=== PATIENT | female | born 1995 | race African-American/Black ===

== ENCOUNTER 2018-09-09 18:24 | Emergency (ER) | payer OTHER ==
[~2018-09-09] VITALS: Ht 154.9 cm; Wt 47.6 kg
[2018-09-09 18:53] LABS: URINE CLARITY SL HAZY; URINE COLOR YELLOW; URINE SPECIFIC GRAVITY >= 1.030 (1.005-1.035)
[2018-09-09 18:54] LABS: ICTOTEST (BILI CONFIRMATORY) Negative (Negative); URINE BILIRUBIN NEGATIVE (Negative); URINE BLOOD NEGATIVE (Negative); URINE GLUCOSE-RANDOM* NEGATIVE (Negative); URINE KETONES 1+ (Negative); URINE LEUKOCYTES-REFLEX NEGATIVE (Negative); URINE NITRITE-REFLEX NEGATIVE (Negative); URINE PROTEIN (DIPSTICK) TRACE (Negative)
[2018-09-09 19:31] LABS: ABSOLUTE NEUTROPHILS 14.4 thou/uL (1.4-8.2); BASOPHILS 0.1 % (0.0-2.0); EOSINOPHILS 0.1 % (0.0-3.0); HEMOGLOBIN 12.8 gm/dL (12.0-15.0); LYMPHOCYTES 3.9 % (24.0-44.0); MCH 28.8 pg (26.0-34.0); MCHC 32.7 g/dL (28.0-37.0); MCV 87.9 fL (80.0-100.0); MONOCYTES 5.1 % (1.0-8.0); PLATELET COUNT 238 thou/uL (150-400); POLYS 90.8 % (36.0-66.0); RBC 4.44 mil/uL (4.20-5.00); RDW 14.3 % (10.5-14.5); WBC 15.9 thou/uL (4.0-11.0)
[2018-09-09 19:44] LABS: CALCIUM 9.5 mg/dL (8.5-10.1); CREATININE 0.8 mg/dL (0.6-1.0); POTASSIUM 3.5 mmol/L (3.5-5.1)
[2018-09-09 19:50] LABS: ALBUMIN 3.1 g/dL (3.4-5.0); TOTAL BILIRUBIN 0.7 mg/dL (<0.1-1.0); TOTAL PROTEIN 7.9 g/dL (6.4-8.2)
[2018-09-09] MEDS ORDERED: BISACODYL SUPP10 MG RECTAL (21:09)
[2018-09-09] MEDS ORDERED: BENTYL 20 MG TA20 M1 PO (21:09)
[2018-09-09] MEDS ORDERED: ZOFRAN ODT4 MG PO (21:09)
[2018-09-09] MEDS ORDERED: MIRALAX17 GM PO (21:09)
[2018-09-09 21:50] VITALS: BP 123/75
== END 2018-09-09 21:50 | disposition home or self-care (01) ==
LOC: ER 18:24
PROVIDERS: Emergency Medicine
DX: K59.00 Constipation, unspecified (principal); R11.10 Vomiting, unspecified; F17.210 Nicotine dependence, cigarettes, uncomplicated; Z98.890 Other specified postprocedural states

== ENCOUNTER 2018-09-14 14:19 | Inpatient (IN) | payer OTHER ==
[~2018-09-14] VITALS: Ht 154.9 cm; Wt 49.9 kg
--- NOTE | ~2018-09-14 | HC ---
[facility] [place] [address] CONSULTATION Name: PERICO HAAS Room #: 422-P ADM IN M.R.#: [id number] Admission: 09/14/18 Attend Phys: Maria T Lane MD Discharge: Date of : 89 Report #: [id number] THIS REPORT FOR: //name// CC: [facility] physician/PCP Maria T Lane DATE OF SERVICE: 09/17/2018 REASON FOR CONSULTATION: Evaluate enteritis and chlamydia cervicitis. HISTORY OF PRESENT ILLNESS: The patient is a 23-year-old with no previous medical history, who presents with approximately 2-week history of abdominal pain located in her mid to lower abdomen. This has been associated with initial constipation. Also associated with nausea and vomiting. She has had temperature up to 102 degrees. There has been no diarrhea. She had one day of which she considers abnormal stool with possible blood associated. No history of rectal bleeding or passing mucus. She lives with friends and her daughter, none of which have been ill. No travel. Does not work outside the home. Admitted on 09/14/2018 and placed on ciprofloxacin and metronidazole. Since then, she has improved with less abdominal pain. The nausea and vomiting have resolved. Fever has resolved. She has had a bowel movement, but overall remains constipated. She does have a history of dysmenorrhea. She delivered her child in 2013 by . Her menses have been irregular. She has been monogamous over the last 4 months. No prior history of STDs. Reports HIV negative previously. She has had fairly persistent vaginal bleeding for the last 3 weeks. She did have a hormonal implant for control, which has as of 02/2017. ALLERGIES: None known. MEDICATIONS: As noted on her MAR including ciprofloxacin, metronidazole and now doxycycline, which was added today. PAST MEDICAL HISTORY: Congenital hearing loss, right ear. FAMILY HISTORY: Inflammatory bowel disease. SOCIAL HISTORY: Smoker of cigarettes, occasional marijuana. No IV drug use. Minimal alcohol use. REVIEW OF SYSTEMS: Denies any headache, cough, sputum, chest pain, palpitations, dysuria, rash, adenopathy, neurologic complaints, psychiatric complaints, hematologic issues. PHYSICAL EXAMINATION: [facility] [address] [place] [address] CONSULTATION Name: PERICO HAAS Room #: 422-P [facility] IN M.R.#: [id number] Admission: 09/14/18 Attend Phys: Maria T Lane MD Discharge: Date of : 89 Report #: [id number] VITAL SIGNS: Afebrile and hemodynamically stable. Maximum temperature last 48 hours is 100.5 degrees. SKIN: Unremarkable other than multiple tattoos. NECK: No adenopathy palpable. HEENT: Eyes: No icterus or conjunctivitis. Mouth without lesion. Several piercings. LUNGS: Clear. HEART: Regular, without murmur. ABDOMEN: Soft with mild tenderness in the rym-fv-lnbtb abdomen. No appreciable mass or hepatosplenomegaly. GENITAL AND RECTAL: Not done as previously performed by Gynecology today. EXTREMITIES: Without lesion, swelling, cyanosis or clubbing. NEUROLOGIC: Cranial nerves intact. Strength in the upper and lower extremities normal. Sensation normal. Deep tendon reflexes normal. PSYCHIATRIC: Mood normal. LABORATORY STUDIES: Sodium 139, potassium 3.4, bicarbonate 31, creatinine 0.7. Lipase 53. Liver function test normal. Initial white count was 15,000, now 6.6. Hemoglobin 10.3, platelet count 353,000. Urinalysis: 2+ protein, 1+ ketones. Chlamydia screen positive, GC negative, Trichomonas negative. CT of the abdomen and pelvis, thickening of the small bowel, several loops in the mid abdomen. Ultrasound of the pelvis negative. IMPRESSION: A 23-year-old with chlamydia cervicitis. No evidence of pelvic inflammatory disease in that her CT scan and ultrasound were negative for abscess or uterine thickening and on examination by Gynecology, she had very mild cervical motion tenderness. Abdominal pain is concerning for inflammatory bowel disease. Still could be acute infectious process. No evidence of trauma. Seems relatively young for malignancy. Doubt vasculitis or ischemia. Meckel's diverticulum would be possible. No evidence of appendicitis. RECOMMENDATIONS: We will continue antibiotic coverage with ciprofloxacin and metronidazole for 10 days. I agree with the addition of doxycycline for 7 days. We will switch to enteral route for her antibiotics and see if she can tolerate this prior to discharge. Small bowel follow through seems most appropriate next test followed by colonoscopy. By: [id number] Eusbeio Barrera MD /nt
[~2018-09-14 14:19] MED LIST: BENTYL 20 MG TA20 M1 PO; BISACODYL SUPP10 MG RECTAL; MIRALAX17 GM PO; ZOFRAN ODT4 MG PO
[2018-09-14 14:50] VITALS: BP 122/84
[2018-09-14 15:20] LABS: ABSOLUTE NEUTROPHILS 13.7 thou/uL (1.4-8.2); BASOPHILS 0.2 % (0.0-2.0); EOSINOPHILS 0.5 % (0.0-3.0); HEMATOCRIT 39.2 % (37.0-47.0); HEMOGLOBIN 13.4 gm/dL (12.0-15.0); LYMPHOCYTES 5.5 % (24.0-44.0); MCH 29.1 pg (26.0-34.0); MCV 85.6 fL (80.0-100.0); MONOCYTES 5.6 % (1.0-8.0); PLATELET COUNT 393 thou/uL (150-400); POLYS 88.2 % (36.0-66.0); RBC 4.59 mil/uL (4.20-5.00); RDW 14.3 % (10.5-14.5); WBC 15.5 thou/uL (4.0-11.0)
[2018-09-14 15:31] LABS: ALBUMIN 2.7 g/dL (3.4-5.0); CALCIUM 9.9 mg/dL (8.5-10.1); CREATININE 0.8 mg/dL (0.6-1.0); POTASSIUM 3.1 mmol/L (3.5-5.1); TOTAL BILIRUBIN 0.6 mg/dL (<0.1-1.0); TOTAL PROTEIN 8.6 g/dL (6.4-8.2)
[2018-09-14 16:28] LABS: URINE CLARITY CLEAR; URINE COLOR AMBER; URINE PROTEIN (DIPSTICK) 2+ (Negative); URINE SPECIFIC GRAVITY 1.025 (1.005-1.035)
[2018-09-14 16:29] LABS: ICTOTEST (BILI CONFIRMATORY) Positive (Negative); URINE BILIRUBIN 2+ (Negative); URINE BLOOD NEGATIVE (Negative); URINE GLUCOSE-RANDOM* NEGATIVE (Negative); URINE KETONES 1+ (Negative); URINE LEUKOCYTES-REFLEX NEGATIVE (Negative); URINE NITRITE-REFLEX NEGATIVE (Negative)
[2018-09-14 16:31] LABS: BACTERIA-REFLEX None Seen /HPF (None Seen); MUCUS >6 Heavy strn/LPF (None Seen); SQUAMOUS >10 Many /LPF (0-3); URINE RBC None Seen /HPF (0-2); URINE WBC-REFLEX 0-5 Rare /HPF (0-5)
[2018-09-14 19:27] VITALS: BP 117/79
[2018-09-14 19:40] VITALS: BP 113/64
[2018-09-14 20:43] VITALS: BP 113/72
[2018-09-15 04:15] VITALS: BP 115/70
[2018-09-15 07:30] VITALS: BP 119/74
[2018-09-15 15:30] VITALS: BP 122/78
[2018-09-15 20:26] VITALS: BP 127/77
[2018-09-16 04:14] VITALS: BP 135/86
[2018-09-16 05:45] LABS: MCH 29.1 pg (26.0-34.0); MCHC 33.7 g/dL (28.0-37.0); MCV 86.4 fL (80.0-100.0); RBC 3.59 mil/uL (4.20-5.00); RDW 14.4 % (10.5-14.5); WBC 8.7 thou/uL (4.0-11.0)
[2018-09-16 05:47] LABS: HEMOGLOBIN 10.5 gm/dL (12.0-15.0)
[2018-09-16 05:56] LABS: CALCIUM 8.6 mg/dL (8.5-10.1); CREATININE 0.7 mg/dL (0.6-1.0); POTASSIUM 3.4 mmol/L (3.5-5.1)
[2018-09-16 07:50] VITALS: BP 129/74
--- NOTE | 2018-09-16 16:16 | HC ---
[facility] [place] [address] CONSULTATION Name: PERICO HAAS Room #: 422-P ADM IN M.R.#: [id number] Admission: 09/14/18 Attend Phys: Sameer Jeffrey MD Discharge: Date of : 89 Report #: [id number] THIS REPORT FOR: //name// CC: Sameer Jeffrey [facility] physician/PCP HISTORY OF PRESENT ILLNESS: The patient is a 23-year-old female I have been asked to see for further evaluation of her GI symptoms, which include abdominal pain, abdominal distention and diarrhea over the course of the last 2 weeks, but worse over the last 1 week. She denies hematochezia. She has had nausea and vomiting and presents with dilated small bowel loops. She denies significant fever or muscle aches, myalgias or general fatigue. PAST MEDICAL HISTORY: Her medical history is well detailed in her old notes but includes no significant chronic medical problems. PAST SURGICAL HISTORY: She has had a in the past. FAMILY HISTORY: Negative for inflammatory bowel disease or colon cancer. ALLERGIES: She is allergic to no medications. MEDICATIONS: No medications on presentation. SOCIAL HISTORY: She does smoke marijuana and cigarettes and drinks occasionally. REVIEW OF SYSTEMS: Negative for weight loss, weakness or fatigue. She denies head, eyes, ears, nose or throat complaints. She denies chest pain, chest palpitation, chest pressure, cough, shortness of breath, wheezing, genitourinary, musculoskeletal or neuropsychiatric complaints beyond that mentioned above. PHYSICAL EXAMINATION: GENERAL: The patient is afebrile. VITAL SIGNS: Stable. HEENT: Nonicteric. NECK: No JVD, thyromegaly or bruits. CARDIOVASCULAR: Regular. LUNGS: Clear. ABDOMEN: Soft, mildly distended, tender throughout without evidence of rebound. No stigmata of chronic liver disease. No abnormal masses or bruits. EXTREMITIES: No clubbing, cyanosis or edema. NEUROLOGIC: Deferred. RECTAL: Deferred. PERTINENT LABORATORY DATA: White count 15.5 with a left shift. Her sed rate [facility] [address] [place] [address] CONSULTATION Name: CARROLL HAASLEY Room #: 422-P ADM IN M.R.#: [id number] Admission: 09/14/18 Attend Phys: Sameer Jeffrey MD Discharge: Date of : 89 Report #: [id number] was 121. Chemistry: Potassium 3.1, chloride 95, venous bicarbonate 32. ALT, AST, lipase normal. CT reveals proximal small bowel dilation and possible colonic dilation. There is apparent wall thickening of the bowel and possible narrowed thick walled small bowel in the mid pelvis. Differential included inflammatory bowel disease versus enteritis. She had a pelvic transvaginal ultrasound, which revealed retroverted uterus and otherwise not abnormal. IMPRESSION AND PLAN: In summary, the patient has evidence of enteritis. The differential between infectious enteritis and inflammatory enteritis secondary to Crohn's disease is often difficult to make. She does have a sedimentation rate significantly elevated. Her clinical presentation is more consistent with a more acute process, which would suggest a viral or bacterial enteritis. She has never had GI workup in the past. At this point, I would facilitate treatment with antibiotics as we are doing. In addition, a colonoscopy may be recommended at some point based on her clinical course. IV fluids and relative bowel rest is recommended as well. We will follow concurrently. Thanks again for allowing me to participate in the care of this woman. <ELECTRONICALLY SIGNED> By: Mikey Jurado MD 09/16/18 [id number] Mikey Jurado MD /nt
[2018-09-16 19:22] VITALS: BP 149/84
[2018-09-17 05:02] VITALS: BP 123/90
[2018-09-17 05:59] LABS: HEMATOCRIT 31.5 % (37.0-47.0); HEMOGLOBIN 10.3 gm/dL (12.0-15.0); MCH 28.4 pg (26.0-34.0); MCHC 32.7 g/dL (28.0-37.0); MCV 86.8 fL (80.0-100.0); RBC 3.63 mil/uL (4.20-5.00); RDW 14.4 % (10.5-14.5); WBC 6.6 thou/uL (4.0-11.0)
[2018-09-17 06:05] LABS: CALCIUM 8.3 mg/dL (8.5-10.1); CREATININE 0.7 mg/dL (0.6-1.0); POTASSIUM 3.4 mmol/L (3.5-5.1)
[2018-09-17 08:08] VITALS: BP 111/69
[2018-09-17 15:58] VITALS: BP 122/74
[2018-09-17 20:00] VITALS: BP 123/82
[2018-09-18 04:20] VITALS: BP 118/72
[2018-09-18 07:46] VITALS: BP 118/74
[2018-09-18 10:07] LABS: HIV ANTIBODY Non Reactive (Non Reactive)
[2018-09-18] MEDS ORDERED: DOXYCYCLINE HYC50 MG PO (10:43)
[2018-09-18] MEDS ORDERED: CIPRO500 MG PO (10:43)
[2018-09-18 11:47] VITALS: BP 118/74
== END 2018-09-18 13:00 | disposition home or self-care (01) | DRG 758 ==
LOC: ER 14:19 → 4E 18:58 → EROBS 18:58 → 4E 19:45
PROVIDERS: Nurse Practitioner Acute Care; Obstetrics & Gynecology; Physician Assistant; ADMIT Internal Medicine
DX: A56.09 Other chlamydial infection of lower genitourinary tract (principal); K56.600 Partial intestinal obstruction, unspecified as to cause; K58.0 Irritable bowel syndrome with diarrhea; N71.9 Inflammatory disease of uterus, unspecified; K52.9 Noninfective gastroenteritis and colitis, unspecified; E87.6 Hypokalemia; F12.90 Cannabis use, unspecified, uncomplicated; D64.9 Anemia, unspecified; N94.6 Dysmenorrhea, unspecified; F17.210 Nicotine dependence, cigarettes, uncomplicated; Z98.891 History of uterine scar from previous surgery; Z79.899 Other long term (current) drug therapy
CPT/HCPCS: 10084

== ENCOUNTER 2018-10-07 21:49 | Emergency (ER) | payer OTHER ==
[~2018-10-07] VITALS: Ht 154.9 cm; Wt 49.9 kg
[~2018-10-07 21:49] MED LIST changes: +CIPRO500 MG PO; +DOXYCYCLINE HYC50 MG PO
[2018-10-07 22:16] LABS: ABSOLUTE NEUTROPHILS 7.2 thou/uL (1.4-8.2); BASOPHILS 0.4 % (0.0-2.0); EOSINOPHILS 0.1 % (0.0-3.0); HEMATOCRIT 40.3 % (37.0-47.0); HEMOGLOBIN 13.3 gm/dL (12.0-15.0); LYMPHOCYTES 10.9 % (24.0-44.0); MCH 28.3 pg (26.0-34.0); MCV 85.8 fL (80.0-100.0); MONOCYTES 4.7 % (1.0-8.0); PLATELET COUNT 219 thou/uL (150-400); POLYS 83.9 % (36.0-66.0); RDW 15.4 % (10.5-14.5); WBC 8.6 thou/uL (4.0-11.0)
[2018-10-07 22:24] LABS: CALCIUM 9.5 mg/dL (8.5-10.1); CREATININE 0.9 mg/dL (0.6-1.0); POTASSIUM 3.5 mmol/L (3.5-5.1)
[2018-10-07 22:30] LABS: ALBUMIN 3.9 g/dL (3.4-5.0); TOTAL BILIRUBIN 1.4 mg/dL (<0.1-1.0); TOTAL PROTEIN 8.6 g/dL (6.4-8.2)
[2018-10-08] MEDS ORDERED: ZOFRAN 4 MG ORAL4 MG PO (00:04)
[2018-10-08 00:11] VITALS: BP 136/84
== END 2018-10-08 00:12 | disposition home or self-care (01) ==
LOC: ER 21:49
PROVIDERS: Emergency Medicine
DX: R11.2 Nausea with vomiting, unspecified (principal); R10.84 Generalized abdominal pain; K59.00 Constipation, unspecified; F17.210 Nicotine dependence, cigarettes, uncomplicated; Z98.890 Other specified postprocedural states